=== PATIENT | male | born 1965 | race Caucasian/White ===

== ENCOUNTER → 2018-01-22 | Outpatient (CLI) | payer OTHER | END | disposition home or self-care (01) | LOC: LABPAT 17:14 | PROVIDERS: ATTEND Orthopaedic Surgery | DX: Z01.812 Encounter for preprocedural laboratory examination (principal) | CPT/HCPCS: 87070 ==

== ENCOUNTER 2018-04-02 06:03 | Day surgery (SDC) | payer OTHER ==
[2018-03-30 10:46] VITALS: BMI 28.8
--- NOTE | 2018-04-01 14:12 | HP ---
HISTORY AND PHYSICAL REASON FOR ADMISSION: Surgery scheduled for 04/02/2018 HISTORY OF PRESENT ILLNESS: Honorio Fernandez is a 52-year-old patient seen with progressive symptomatic right knee osteoarthritis. We discussed treatment options. He elected to proceed with right total knee arthroplasty. Consent regarding the procedure was obtained. Medical clearance was provided by Dr. Ferrer. PAST MEDICAL HISTORY: Noncontributory. PAST SURGICAL HISTORY: Knee arthroscopy. MEDICATIONS: Aleve and Lortab. ALLERGIES: None reported. SOCIAL HISTORY: Smokes cigarettes. PHYSICAL EXAMINATION: Evaluation of the right knee: Range of motion is -3 to 120 degrees. Moderate effusion. Tenderness medial joint line. Crepitus medial and patellofemoral compartments with range of motion. Ligaments stable. Hip rotation without pain. Distal neurovascular exam is intact. RADIOGRAPHS: Right knee radiographs reveal severe medial moderate patellofemoral compartment osteoarthritis. IMPRESSION: 1. Right knee osteoarthritis. 2. Tobacco use. PLAN: Right total knee arthroplasty. Surgery scheduled for 04/02/2018. MMODL / IJN: [id number] /
[~2018-04-02 06:03] MED LIST: ACETAMINOPHEN TAB 500 MG TAB PO ONE; LACTATED RINGERS 1,000 ML IV SCH; LIDOCAINE 1% 20 ML VIAL (10MG/ML) FOR IV START INTRADERMA PRN; MELOXICAM 7.5 MG TAB PO ONE; ONDANSETRON 4 MG/2 ML VIAL IVP ONE; TRANEXAMIC ACID 1,000 MG in SODIUM CHLORIDE 0.9% 100 ML IVPB ONE
[2018-04-02] MEDS ORDERED: DEXAMETHASONE SOD PHOS (MDV) 100 MG/10 ML VIAL IV ONE (06:43)
[2018-04-02] MEDS ORDERED: MIDAZOLAM 2 MG/2 ML VIAL IV ONE (07:06)
[2018-04-02] MEDS ORDERED: ROPIVACAINE 246.25 MG, EPINEPHrine 0.5 MG, KETOROLAC 30 MG, cloNIDine HCL/PF 80 MCG, WA... MISCELLANE ONE ×5 (07:33)
[2018-04-02] MEDS: ceFAZolin IN SWFI 2 GM/20 ML SYRINGE IVP ONE ×2 (07:40→14:05)
[2018-04-02] MEDS ORDERED: ceFAZolin 3,000 MG in SODIUM CHLORIDE 0.9% IRRIGATIO 3,000 ML IRRIGATION ONE (08:02)
[2018-04-02] MEDS ORDERED: ROPIVACAINE 1,100 MG, SODIUM CHLORIDE 0.9% 500 ML 330 ML MISCELLANE PRN ×2 (09:06)
[2018-04-02] MEDS ORDERED: LACTATED RINGERS 1,000 ML IV ONE (09:12)
[2018-04-02] MEDS ORDERED: traMADol 50 MG TAB PO PRN (09:30)
[2018-04-02] MEDS ORDERED: HYDROmorphone 0.5 MG/0.5 ML SYRINGE IVP PRN ×2 (09:30)
[2018-04-02] MEDS ORDERED: LACTATED RINGERS 1,000 ML IV SCH (09:30)
[2018-04-02] MEDS ORDERED: HYDROcodone/APAP 5-325MG 1 EACH TAB PO PRN ×2 (09:30)
[2018-04-02] MEDS ORDERED: NALOXONE 0.4 MG/ML 1 ML VIAL IV PRN (09:30)
[2018-04-02] MEDS ORDERED: HYDROmorphone 1 MG/ML 1 ML SYRINGE IVP PRN (09:30)
[2018-04-02] MEDS ORDERED: ONDANSETRON 4 MG/2 ML VIAL IVP PRN (09:30)
--- NOTE | 2018-04-02 09:30 | P.OP ---
Date of Procedure: 04/02/18 Preoperative Diagnosis: Right knee osteoarthritis Postoperative Diagnosis: Right knee osteoarthritis Procedure(s) Performed: Right total knee arthroplasty Implants: 1. Microport evolution size 5 right CS/CR cemented femur 2. Microport evolution size 5 right cemented tibial baseplate 3. Microport evolution 12 mm MP polyethylene tibial insert 4. Microport advance all polyethylene 38 mm cemented patella Anesthesia: GETA, regional (Adductor canal catheter), local Surgeon: Agusto Delgado Case Management Associate #1: Bert Guzman Estimated Blood Loss (ml): 50 Pathology: other (Bone) Condition: stable Disposition: PACU Indications for Procedure: 52-year-old patient seen with significant symptomatic right knee osteoarthritis. After treatment options were discussed, he elected to proceed with total knee arthroplasty Operative Findings: see description of procedure Description of Procedure: Patient was taken to the operative suite after having an adductor canal catheter placed by the department of anesthesia. Patient underwent a general anesthetic by the department of anesthesia. Patient was given preoperative IV intake antibiotics and TXA. A well-padded tourniquet was placed about the right lower extremity. The lower extremity was then prepped and draped in the normal sterile orthopedic fashion. The extremity was elevated, a tourniquet was insufflated to 300. A standard anterior incision was made sharply through skin. Dissection was taken down through the subcutaneous soft tissues down to the extensor mechanism. A medial arthrotomy was performed, patella was everted and knee was flexed. There was advanced osteoarthritis noted. I introduced my distal intramedullary femoral drill. I then introduced the distal femoral cutting jig. Dickson DURAN secured the cutting jig with 2 pins. I held retractors in position while Dickson DURAN performed the distal femoral resection through the guide area we now removed her distal femoral cutting guide. We now placed our 4-in-1 femoral cutting block and positioned and it was secured with 2 pins by Dickson DURAN while I held the block in position. The distal femoral finishing was now completed. A proximal tibial cutting guide was positioned. I held the guide in the appropriate position with both hands well Dickson DURAN inserted stabilizing pins into the guide. Proximal tibial cut was made. We now placed a trial femoral component into position, along with an appropriate size tibial tray and insert. We now took the knee through range of motion and had full extension good flexion and good overall soft tissue balance noted. The patella was everted and stabilized with 2 towel clips held by Dickson DURAN while I performed a flush with patellar quad tendon utilizing a fresh sawblade. We templated the patella, appropriate drill holes were made. An appropriate trial patella was positioned, knee was taken through full range of motion with the patella tracking very nicely. The trial patella was removed. Drill holes were made through the femoral component. All trial components were removed after marking off the appropriate rotation of the tibia. Retractors were now positioned along the proximal tibia. An appropriate keel punch was made with the appropriate size tibial guide by myself on Dickson DURAN assisted by holding retractors. At this point appropriate size implants were chosen and opened. The joint was irrigated copiously with pulse lavage mechanical irrigation. The posterior capsule was infiltrated with local analgesic. The wound was irrigated with pulse lavage mechanical irrigation. We mixed antibiotic methylmethacrylate. We placed the knee into flexion. We placed multiple retractors assisted by Dickson DURAN to expose the proximal tibia. Once the methyl methacrylate was ready, the tibial component was cemented into place removing any excess methylmethacrylate form by both myself and Dickson DURAN. The femoral component was cemented into place removing the removing any excess methylmethacrylate performed by both myself and Dickson DURAN. We then inserted the appropriate size polyethylene tibial insert. We made sure that it was locked into position. We took the knee into full extension, and then back in a flexion making sure we had removed any excess methylmethacrylate. The patellar component was then cemented down and secured with clamp. Excess methylmethacrylate removed. We kept the knee in full extension, patellar clamp in position until methylmethacrylate had hardened. Once it had hardened the patellar clamp was removed. The knee was taken through full range of motion. The patella tracked nicely. There was good soft tissue balancing. The tourniquet was now released. Additional hemostasis was achieved via electrocautery. A second gram of TXA was given. The wound again was irrigated with pulse lavage mechanical irrigation. The superficial soft tissues were infiltrated local analgesic. The extensor mechanism was repaired with Vicryl. We checked the repair with range of motion and it was stable. The subcutaneous soft tissues were repaired with Vicryl in layers. The skin was approximated with pernio/Dermabond. Sterile dressings were applied followed by loose web roll and Logan bandage. The patient was transferred to a bed, and taken to recovery in stable and satisfactory condition. Dickson DURAN assisted with this complex procedure.
[2018-04-02 09:55] VITALS: TEMP 97.8
[2018-04-02] MEDS: HYDROmorphone 0.5 MG/0.5 ML SYRINGE IVP PRN ×4 (09:59→10:20)
[2018-04-02 10:17] VITALS: RESP 16
--- NOTE | 2018-04-02 10:28 | XR ---
Right knee HISTORY: Status post right knee arthroplasty 2 views of the right knee Patient is status post right knee arthroplasty. Lucency is present in the soft tissues. There is salma omic alignment. Soft tissue swelling. IMPRESSION: Orthopedic follow-up.
[2018-04-02] MEDS: MEPERIDINE 50 MG/ML SYRINGE IVP ONE ×2 (10:35→10:48)
[2018-04-02] MEDS ORDERED: HYDROcodone/APAP 7.5-325MG 1 EACH TAB PO ONE (13:35)
[2018-04-02] MEDS ORDERED: ceFAZolin IN SWFI 2 GM/20 ML SYRINGE IVP ONE (14:00)
[2018-04-02 14:50] VITALS: BP 135/71; PULSE 73
--- NOTE | 2018-04-02 15:27 | P.ONQ ---
Anesthesiology Proc Note - PNB - Peripheral Nerve Block Performed Right Adductor Canal Infusion Time Out Performed: Yes Procedure Start Time: 07:06 Procedure Stop Time: 07:17 Indication: Acute Post-Operative Pain, Requested by physician Sedation Type: Sedate with meaningful contact maintained Preparation: Sterile Dressing Position: Supine Catheter: Indwelling Needle Types: On-Q Needle Size: 100mm (4") Needle Gauge: 21 Technique: Ultrasound Injectate: 0.5% Ropivacaine (see comment for volume) (ropi .5% 20c c) Blood Aspirated: No Pain Paresthesia on Injection Noted: No Resistance on Injection: Normal Events: Uneventful and Well Tolerated
== END 2018-04-02 13:40 | disposition home health service (06) ==
LOC: OR 06:03
PROVIDERS: ATTEND Orthopaedic Surgery
DX: M17.11 Unilateral primary osteoarthritis, right knee (principal); Z72.0 Tobacco use; Z79.899 Other long term (current) drug therapy
CPT/HCPCS: 97161; 88300; 73560; 27447; C1776; C1713; C1772; J2250; J0171; J2175; J2405; J0690 ×2; J1885; J1100; J2795; J0735; J1170

== ENCOUNTER → 2018-05-28 | Day surgery (SDC) | payer OTHER ==
[2018-05-22 09:15] VITALS: BMI 28.8
--- NOTE | 2018-05-27 13:26 | HP ---
HISTORY AND PHYSICAL REASON FOR ADMISSION: Surgery scheduled 05/28/2018 Honorio Fernandez is a 52-year-old patient seen with right knee adhesions/stiffness after previously having undergone total knee arthroplasty. Options regarding this were discussed. He elected to proceed with manipulation under anesthesia, right knee with steroid injection. Consent was obtained his. PAST MEDICAL HISTORY: Noncontributory. PAST SURGICAL HISTORY: Right total knee arthroplasty. DAILY MEDICATIONS: [place], tramadol, Naprosyn. ALLERGIES: None. SOCIAL HISTORY: He smokes 1/4 pack cigarettes daily. PHYSICAL EXAMINATION: Evaluation of the right knee, his anterior incision is well healed. His range of motion is -15 to 80. Ligaments are stable. Hip rotation without pain. His distal neurovascular exam is intact. RADIOGRAPHS: Radiographs of the right knee revealed a stable-appearing total knee arthroplasty. IMPRESSION: 1. Right knee stiffness/adhesions. 2. History of right total knee arthroplasty. 3. Tobacco use. PLAN: Manipulation under anesthesia right knee with steroid injection. Surgery is scheduled 05/28/2018. MMODL / IJN: [id number] /
[~2018-05-28] MED LIST changes: -ACETAMINOPHEN TAB 500 MG TAB PO ONE; +BUPIVACAINE (PF) 0.5% 30 ML VIAL MISCELLANE ONE; +DEXAMETHASONE SOD PHOSPHATE 10 MG/ML 1 ML VIAL IV ONE; +HYDROcodone/APAP 7.5-325MG 1 EACH TAB PO ONE; +HYDROmorphone 0.5 MG/0.5 ML SYRINGE IVP PRN; -LIDOCAINE 1% 20 ML VIAL (10MG/ML) FOR IV START INTRADERMA PRN; +LIDOCAINE 1% INJ 10MG/ML (20 ML MDV) ONE; -MELOXICAM 7.5 MG TAB PO ONE; +MIDAZOLAM (PF) 2 MG/2 ML VIAL IV PRN; +PROPOFOL 10 MG/ML 20 ML VIAL IV ONE; +SCOPOLAMINE 1.5MG/72HR PATCH TRANSDERM ONE; -TRANEXAMIC ACID 1,000 MG in SODIUM CHLORIDE 0.9% 100 ML IVPB ONE; +ceFAZolin IN SWFI 2 GM/20 ML SYRINGE IVP ONE; +fentaNYL (PF) 50 MCG/ML 2 ML AMP ONE; +methylPREDNISolone ACETATE 80 MG/ML 1 ML VIAL MISCELLANE ONE
[2018-05-28 09:23] VITALS: TEMP 98.8
--- NOTE | 2018-05-28 10:43 | P.OP ---
Date of Procedure: 05/28/18 Preoperative Diagnosis: Right knee adhesions/stiffness Postoperative Diagnosis: Same Procedure(s) Performed: Manipulation under anesthesia right knee with steroid injection Anesthesia: MAC, local Surgeon: Agusto Delgado Estimated Blood Loss (ml): 0 Pathology: none sent Condition: stable Disposition: PACU Indications for Procedure: 52-year-old patient seen with right knee adhesions/stiffness after previously having undergone total knee arthroplasty. We discussed options. He elected to proceed with manipulation under anesthesia right knee with steroid injection. Operative Findings: See description of procedure Description of Procedure: The patient was taken to a monitored anesthesia area. The patient received preoperative IV antibiotics. The patient underwent IV sedation by the department of anesthesia. When good sufficient anesthesia was noted a manipulation of the right knee was performed achieving full extension and 140 of flexion. The superior lateral aspect of the right knee was prepped and draped in the normal sterile orthopedic fashion. I injected a solution of 1 mL Depo-Medrol and 3 mL half percent Marcaine under sterile technique. A sterile Band-Aid was applied. The knee was again taken through range of motion. The patient was awakened having tolerated procedure well.
[2018-05-28 11:45] VITALS: BP 120/77; PULSE 69; RESP 16
== END | disposition home or self-care (01) ==
LOC: OR 08:55
PROVIDERS: ATTEND Orthopaedic Surgery
DX: M23.8X1 Other internal derangements of right knee (principal); M25.661 Stiffness of right knee, not elsewhere classified; F17.210 Nicotine dependence, cigarettes, uncomplicated; Z96.651 Presence of right artificial knee joint
CPT/HCPCS: 27570; J1040; J2001; J3010; J2704; J0690

== ENCOUNTER → 2018-06-13 | Outpatient (CLI) | payer OTHER ==
[2018-06-13 13:09] LABS: Potassium 4.9 mmol/L (3.5-5.1)
[2018-06-13 13:15] LABS: INR 0.9 (<1.2); Prothrombin Time 10.1 sec (9.0-12.0)
[2018-06-13 13:16] LABS: Basophils # (A) 0.1 k/uL (0-0.2); Basophils % (A) 1 %; Eosinophils # (A) 0.3 k/uL (0-0.7); Eosinophils % (A) 4 %; HCT 45.2 % (39.0-53.0); HGB 15.1 gm/dL (13.0-17.5); Lymphocytes # (A) 2.2 k/uL (1.0-4.8); Lymphocytes % (A) 26 %; MCHC 33.3 g/dL (31.0-37.0); Mean Platelet Volume 7.1; Monocytes # (A) 0.4 k/uL (0-1.0); Monocytes % (A) 4 %; Neutrophils # (A) 5.2 k/uL (1.3-7.7); Neutrophils % (A) 63 %; Platelet Count 290 k/uL (150-450); RBC 4.86 m/uL (4.30-5.90); RDW 15.1 % (11.5-15.5); WBC 8.3 k/uL (3.8-10.6)
== END | disposition home or self-care (01) ==
LOC: LABPAT 11:50
PROVIDERS: ATTEND Orthopaedic Surgery
DX: Z01.812 Encounter for preprocedural laboratory examination (principal); M17.12 Unilateral primary osteoarthritis, left knee
CPT/HCPCS: 80051; 85025; 85610; 87070

== ENCOUNTER 2018-06-25 08:26 | Day surgery (SDC) | payer OTHER ==
[2018-06-18 09:48] VITALS: BMI 28.8
--- NOTE | 2018-06-24 17:05 | HP ---
HISTORY AND PHYSICAL REASON FOR ADMISSION: Surgery is scheduled for 06/25/2018 HISTORY OF PRESENT ILLNESS: Honorio Fernandez is a 52-year-old patient seen with symptomatic left knee osteoarthritis. We discussed options. He elected to proceed with left total knee arthroplasty. Consent regarding the procedure was obtained. PAST MEDICAL HISTORY: Noncontributory. PAST SURGICAL HISTORY: Right total knee arthroplasty. DAILY MEDICATIONS: [place], tramadol. ALLERGIES: None. SOCIAL HISTORY: Smokes cigarettes. PHYSICAL EXAMINATION: Evaluation of the left knee is range of motion is -7 to 110 degrees. Tenderness along the medial joint line. Crepitus medial patellofemoral compartments with range of motion. There is pain with patellofemoral compression. Ligaments are stable. Hip rotation is without pain. His distal neurovascular exam is intact. RADIOGRAPHS: Radiographs of the left knee reveal severe medial and moderate patellofemoral compartment osteoarthritis. IMPRESSION: Left knee osteoarthritis. PLAN: Left total knee arthroplasty. Surgery scheduled for 06/25/2018. MMODL / IJN: [id number] /
[~2018-06-25 08:26] MED LIST changes: +ACETAMINOPHEN TAB 500 MG TAB PO ONE; -BUPIVACAINE (PF) 0.5% 30 ML VIAL MISCELLANE ONE; -HYDROcodone/APAP 7.5-325MG 1 EACH TAB PO ONE; -HYDROmorphone 0.5 MG/0.5 ML SYRINGE IVP PRN; +LIDOCAINE 1% 20 ML VIAL (10MG/ML) FOR IV START INTRADERMA PRN; -LIDOCAINE 1% INJ 10MG/ML (20 ML MDV) ONE; +MELOXICAM 7.5 MG TAB PO ONE; -PROPOFOL 10 MG/ML 20 ML VIAL IV ONE; -SCOPOLAMINE 1.5MG/72HR PATCH TRANSDERM ONE; +TRANEXAMIC ACID 1,000 MG in SODIUM CHLORIDE 0.9% 100 ML IVPB ONE; +fentaNYL (PF) 50 MCG/ML 2 ML AMP IV PRN; -fentaNYL (PF) 50 MCG/ML 2 ML AMP ONE; -methylPREDNISolone ACETATE 80 MG/ML 1 ML VIAL MISCELLANE ONE
[2018-06-25] MEDS ORDERED: ROPIVACAINE 246.25 MG, EPINEPHrine 0.5 MG, KETOROLAC 30 MG, cloNIDine HCL/PF 80 MCG, WA... MISCELLANE ONE ×5 (09:36)
[2018-06-25] MEDS ORDERED: ROPIVACAINE 1,100 MG, SODIUM CHLORIDE 0.9% 500 ML 330 ML MISCELLANE PRN ×2 (09:58)
[2018-06-25] MEDS ORDERED: MIDAZOLAM 2 MG/2 ML VIAL ONE (10:10)
[2018-06-25] MEDS ORDERED: LIDOCAINE 1% INJ 10MG/ML (20 ML MDV) ONE (10:10)
[2018-06-25] MEDS ORDERED: SODIUM CHLORIDE 0.9% 100 ML BAG ONE (10:10)
[2018-06-25] MEDS ORDERED: SUCCINYLCHOLINE CHLORIDE 100 MG/5 ML SYR IV ONE (10:10)
[2018-06-25] MEDS ORDERED: TRANEXAMIC ACID 1,000 MG/10 ML VIAL ONE (10:10)
[2018-06-25] MEDS ORDERED: NEOSTIGMINE 1 MG/ML 10 ML VIAL ONE (10:10)
[2018-06-25] MEDS ORDERED: GLYCOPYRROLATE 0.2 MG/ML 2 ML VIAL ONE (10:10)
[2018-06-25] MEDS ORDERED: ROCURONIUM BROMIDE 10 MG/ML 10 ML VIAL IV ONE (10:10)
[2018-06-25] MEDS ORDERED: fentaNYL (PF) 50 MCG/ML 2 ML AMP ONE (10:10)
[2018-06-25] MEDS ORDERED: PROPOFOL 10 MG/ML 20 ML VIAL IV ONE (10:10)
[2018-06-25] MEDS ORDERED: ceFAZolin 3,000 MG in SODIUM CHLORIDE 0.9% IRRIGATIO 3,000 ML IRRIGATION ONE (10:44)
[2018-06-25] MEDS ORDERED: LACTATED RINGERS 1,000 ML IV ONE (11:11)
[2018-06-25] MEDS ORDERED: NALOXONE 0.4 MG/ML 1 ML VIAL IV PRN (12:12)
[2018-06-25] MEDS ORDERED: HYDROcodone/APAP 5-325MG 1 EACH TAB PO PRN (12:12)
[2018-06-25] MEDS ORDERED: HYDROmorphone 0.5 MG/0.5 ML SYRINGE IVP PRN ×2 (12:12)
[2018-06-25] MEDS ORDERED: HYDROmorphone 1 MG/ML 1 ML SYRINGE IVP PRN (12:12)
[2018-06-25] MEDS ORDERED: HYDROcodone/APAP 7.5-325MG 1 EACH TAB PO PRN (12:12)
--- NOTE | 2018-06-25 12:12 | P.OP ---
Date of Procedure: 06/25/18 Preoperative Diagnosis: Left knee osteoarthritis Postoperative Diagnosis: Left knee osteoarthritis Procedure(s) Performed: Left total knee arthroplasty Implants: 1. Microport evolution CR size 5 left cemented femur 2. Microport evolution size 5 left cemented tibial baseplate 3. Microport evolution size 5 left MP CS 12 mm polyethylene tibial insert 4. Microport advance 35 mm all polyethylene cemented patella Anesthesia: GETA, regional (Adductor canal catheter), local Surgeon: Agusto Delgado Assistant Inventory Manager #1: Bert Guzman Estimated Blood Loss (ml): 50 Pathology: other (Bone) Condition: stable Disposition: PACU Indications for Procedure: 52-year-old patient seen with symptomatic left knee osteoarthritis. After treatment options were discussed, he elected to proceed with total knee arthroplasty Operative Findings: See description of procedure Description of Procedure: Patient was taken to the operative suite after having an adductor canal catheter placed by the department of anesthesia for postoperative pain management. Patient underwent a general anesthetic by the department of anesthesia. Patient was given preoperative IV intake antibiotics and TXA. A well-padded tourniquet was placed about the left lower extremity. The lower extremity was then prepped and draped in the normal sterile orthopedic fashion. The extremity was elevated, a tourniquet was insufflated to 300. A standard anterior incision was made sharply through skin. Dissection was taken down through the subcutaneous soft tissues down to the extensor mechanism. A medial arthrotomy was performed, patella was everted and knee was flexed. There was advanced osteoarthritis noted. I introduced my distal intramedullary femoral drill. I then introduced the distal femoral cutting jig. Dickson DURAN secured the cutting jig with 2 pins. I held retractors in position while Dickson DURAN performed the distal femoral resection through the guide area we now removed her distal femoral cutting guide. We now placed our 4-in-1 femoral cutting block and positioned and it was secured with 2 pins by Dickson DURAN while I held the block in position. The distal femoral finishing was now completed. A proximal tibial cutting guide was positioned. I held the guide in the appropriate position with both hands well Dickson DURAN inserted stabilizing pins into the guide. Prox imal tibial cut was made. We now placed a trial femoral component into position, along with an appropriate size tibial tray and insert. We now took the knee through range of motion and had full extension good flexion and good overall soft tissue balance noted. The patella was everted and stabilized with 2 towel clips held by Dickson DURAN while I performed a flush with patellar quad tendon utilizing a fresh sawblade. We templated the patella, appropriate drill holes were made. An appropriate trial patella was positioned, knee was taken through full range of motion with the patella tracking very nicely. The trial patella was removed. Drill holes were made through the femoral component. All trial components were removed after marking off the appropriate rotation of the tibia. Retractors were now positioned along the proximal tibia. An appropriate keel punch was made with the appropriate size tibial guide by myself on Dickson DURAN assisted by holding retractors. At this point appropriate size implants were chosen and opened. The joint was irrigated copiously with pulse lavage mechanical irrigation. The posterior capsule was infiltrated with local analgesic. The wound was irrigated with pulse lavage mechanical irrigation. We mixed antibiotic methylmethacrylate. We placed the knee into flexion. We placed multiple retractors assisted by Dickson DURAN to expose the proximal tibia. Once the methyl methacrylate was ready, the tibial component was cemented into place removing any excess methylmethacrylate form by both myself and Dickson DURAN. The femoral component was cemented into place removing the removing any excess methylmethacrylate performed by both myself and Dickson DURAN. We then inserted the appropriate size polyethylene tibial insert. We made sure that it was locked into position. We took the knee into full extension, and then back in a flexion making sure we had removed any excess methylmethacrylate. The patellar component was then cemented down and secured with clamp. Excess methylmethacrylate removed. We kept the knee in full extension, patellar clamp in position until methylmethacrylate had hardened. Once it had hardened the patellar clamp was removed. The knee was taken through full range of motion. The patella tracked nicely. There was good soft tissue balancing. The tourniquet was now released. Additional hemostasis was achieved via electrocautery. A second gram of TXA was given. The wound again was irrigated with pulse lavage mechanical irrigation. The superficial soft tissues were infiltrated local analgesic. The extensor mechanism was repaired with Vicryl. We checked the repair with range of motion and it was stable. The subcutaneous soft tissues were repaired with Vicryl in layers. The skin was approximated with pernio/Dermabond. Sterile dressings were applied followed by loose web roll and Logan bandage. The patient was transferred to a bed, and taken to recovery in stable and satisfactory condition. Dickson DURAN assisted with this complex procedure.
[2018-06-25] MEDS ORDERED: LACTATED RINGERS 1,000 ML IV SCH (12:15)
[2018-06-25 12:41] VITALS: TEMP 97.8
[2018-06-25] MEDS ORDERED: HYDROmorphone 1 MG/ML 1 ML SYRINGE IVP ONE ×2 (12:59→13:11)
--- NOTE | 2018-06-25 13:02 | XR ---
EXAMINATION TYPE: XR knee limited LT DATE OF EXAM: 06/25/2018 CLINICAL HISTORY: Left knee pain and arthritis status post total knee replacement. TECHNIQUE: Portable AP and crosstable lateral views of the left knee are obtained immediately postop eratively. COMPARISON: None FINDINGS: Metallic hardware from total left knee arthroplasty is seen and appears satisfactory in al ignment and position. There is evidence of recent surgery with diffuse subcutaneous gas and soft ti ssue swelling noted. IMPRESSION: METALLIC HARDWARE FROM TOTAL LEFT KNEE ARTHROPLASTY IS SATISFACTORY IN ALIGNMENT.
[2018-06-25] MEDS ORDERED: HYDROcodone/APAP 7.5-325MG 1 EACH TAB PO ONE (14:00)
[2018-06-25 15:52] VITALS: BP 132/89; PULSE 89; RESP 18
[2018-06-25] MEDS ORDERED: ceFAZolin IN SWFI 2 GM/20 ML SYRINGE IVP ONE (18:14)
== END 2018-06-25 16:40 | disposition home health service (06) ==
LOC: OR 08:26
PROVIDERS: ATTEND Orthopaedic Surgery
DX: M17.12 Unilateral primary osteoarthritis, left knee (principal); F17.210 Nicotine dependence, cigarettes, uncomplicated; Z96.651 Presence of right artificial knee joint; Z79.891 Long term (current) use of opiate analgesic
CPT/HCPCS: 27447; 97161; 88300; 73560; C1776; C1713; C1772; J2250 ×2; J0171; J1100; J2710; J2405; J0690 ×2; J2001; J3010; J1885; J1170 ×2; J2795; J0330; J2704; J0735

== ENCOUNTER → 2024-07-02 | Outpatient (CLI) | payer BC ==
[2024-07-02 16:00] LABS: HCT 47.5 % (39.6-50.0); HGB 16.1 g/dL (13.0-17.0); MCHC 33.9 g/dL (32.0-37.0); MCV 97.3 FL (80.0-97.0); Mean Platelet Volume 9.5 FL (9.5-12.2); NRBC Per 100 WBC 0 X 10*3/uL (0.00-0.01); Platelet Count 313 X 10*3/uL (140-440); RBC 4.88 X 10*6/uL (4.40-5.60); RDW 13.2 % (11.5-14.5); WBC 8.59 X 10*3/uL (4.50-10.00)
[2024-07-02 17:05] LABS: Erythrocyte Sedimentation Rate 9 mm/Hr (0-20)
== END | disposition home or self-care (01) ==
LOC: LABWHC1 10:55
PROVIDERS: ATTEND Orthopaedic Surgery
DX: T84.84XA Pain due to internal orthopedic prosthetic devices, implants and grafts, initial encounter (principal)
CPT/HCPCS: 36415; 85027; 85652; 86140

== ENCOUNTER → 2024-07-09 | Outpatient (CLI) | payer BC ==
--- NOTE | 2024-07-09 13:54 | NM ---
EXAMINATION TYPE: NM bone 3 phase DATE OF EXAM: 07/09/2024 COMPARISON: Outside radiographs 07/02/2024 CLINICAL INDICATION: Male, 58 years old with history of T84.032A MECH LOOSENING OF INTERNAL RIGHT KNE E PRO; patient with bilateral total knee arthroplasties approximately 6 years ago. Left knee pain for 2 months. TECHNIQUE: Triple phase bone scintigraphy was performed following the injection of 24.7 mCi Tc 99m MD P. Immediate images and 5 hours post injection images acquired. FINDINGS: Flow images show slight asymmetric hyperemia on the left especially medially. Pool images show corresponding increased activity medial aspect of the left knee. Delayed scan shows asymmetric increased activity around both oral and tibial components of the left t otal knee arthroplasty. Photopenia on both sides in keeping with bilateral knee replacements. IMPRESSION: 1. Three-phase asymmetric increased activity about the left total knee arthroplasty. Unable to exclud e early loosening on this side. 2. Flow and pool show increased activity particularly along the medial aspect of the left knee. Corre late to exclude the possibility of an MCL injury. [facility], , 07/09/2024 1:51 PM
== END | disposition home or self-care (01) ==
LOC: RADNMMAIN 07:28
PROVIDERS: ATTEND Orthopaedic Surgery
DX: T84.032A Mechanical loosening of internal right knee prosthetic joint, initial encounter (principal); T84.033A Mechanical loosening of internal left knee prosthetic joint, initial encounter; Z96.653 Presence of artificial knee joint, bilateral
CPT/HCPCS: 78315; A9503